=== PATIENT | female | born 1950 | race African-American/Black ===

== ENCOUNTER 2022-04-21 04:00 | Emergency (ER) | payer OTHER, MEDICAID ==
[~2022-04-21] VITALS: Ht 160 cm; Wt 81.6 kg
[2022-04-21 04:00] VITALS: BP 170/104
[~2022-04-21 04:00] MED LIST: HYDR-5191 PO; TRAM50TA1 PO
--- NOTE | 2022-04-21 04:04 | NUR ---
PT BROUGHT TO BED 2 VIA [facility]
--- NOTE | 2022-04-21 04:05 | NUR ---
Received pt in room 2 from EMT. CC Leg fatigue from taking the bus and walking. AAOx4, requesting [place] PO and verbalizing that nothing else works for her. Seen by MD at bedside.
[2022-04-21] MEDS ORDERED: NAPR-54 PO (04:49)
--- NOTE | 2022-04-21 05:20 | NUR ---
Pt continues to refuse pain meds offered, staing only [place] works.
[2022-04-21 06:00] VITALS: BP 138/78
--- NOTE | 2022-04-21 06:15 | NUR ---
Patient discharged with v/s stable. Written and verbal after care instructions given and explained. Homeless packet given. food offered -Pt refused food. Patient alert, oriented and verbalized refusal to instructions also, refused to sign d/c. Wheel Chair Assisted out of ED by [employer] [facility] [employer].. All questions addressed prior to discharge. ID band removed. Patient verbalized she will check in again for another DrReyna to assess her and give her the correct Rx [place]. Rx given Naproxen PO. Patient educated on indication of medication Benefits, including possible reaction and side effects. Opportunity to ask questions provided and answered.
== END 2022-04-21 06:15 | disposition home or self-care (01) ==
LOC: MED 04:00
DX: M25.552 Pain in left hip (principal); M25.551 Pain in right hip; M79.652 Pain in left thigh; M79.651 Pain in right thigh; I10 Essential (primary) hypertension; M19.90 Unspecified osteoarthritis, unspecified site
CPT/HCPCS: 99282